=== PATIENT | male | born 1990 | race Caucasian/White ===

== ENCOUNTER 2020-07-08 00:09 | Emergency (ER) | payer BC ==
[~2020-07-08] VITALS: Ht 172.7 cm; Wt 108.0 kg
[2020-07-08 00:17] VITALS: Ht 172.7 cm; Wt 108.0 kg
[2020-07-08] MEDS ORDERED: VOLTAREN100 GM TOP (02:09)
[2020-07-08] MEDS ORDERED: DICLOFENAC SODI75 MG PO (02:09)
[2020-07-08 02:15] VITALS: BP 130/67
== END 2020-07-08 02:15 | disposition home or self-care (01) ==
LOC: ED 00:09
DX: S39.012A Strain of muscle, fascia and tendon of lower back, initial encounter (principal); X50.9XXA Other and unspecified overexertion or strenuous movements or postures, initial encounter; Y93.89 Activity, other specified; Y92.89 Other specified places as the place of occurrence of the external cause; Y99.8 Other external cause status
CPT/HCPCS: J1885; J7510